=== PATIENT | male | born 1965 | race Caucasian/White ===

== ENCOUNTER 2020-11-12 06:43 | Day surgery (SDC) | payer BC, SELFPAY ==
[2020-11-06 11:22] VITALS: BMI 34.4
[2020-11-12 07:05] VITALS: BP 180/93; PULSE 63; RESP 18; TEMP 36.1; O2SAT 99
--- NOTE | 2020-11-12 07:50 | P.PN_ITS ---
[facility] Anesthesia Checklist - Patient Identification Patient Identification: Arm Band - Structural Data Admitted From: Home Planned Operative Procedure/s: colonoscopy Consent for Planned Operative Procedure(s) Verified: Yes Verified Documents: Surgical Consent, History and Physical - NPO Status Verified Time NPO: 00:00 - Additional verifications Anesthesia Reactions: No - Airway Assessment C-Spine Mobility Assessed: Yes (mp2) TMJ Mobility Assessed: Yes Dentition: Good Dentition - Neurological Assessment Level of Consciousness: Awake, Alert - Anesthesia Plan Anesthesia Risk discussed: Yes Anesthesia Plan: Verified ASA Class: III Anesthesia Type: MAC [facility] History I have reviewed the patient's past medical history: Yes Medical History: Reports:: Gastroesophageal Reflux Disease(GERD), Hypertension, Valvular Heart Disease (moderate to severe aortic stenosis) Denies:: Cancer, Diabetes Mellitus Type 1, Diabetes Mellitus Type 2, Internal Pacemaker, MRSA, Seizures *Have you ever received a pneumonia vaccine?: No *Have you received a flu vaccine this season?: No Anesthesia experience/problems:: nac Other Surgeries: Yes: No Previous Surgery. No: Pacemaker Amputation: No Fractures: No - *Social History Last grade of school completed: Some college Smoking Status: Never smoker Alcohol Intake: current Alcohol Intake Frequency:: 3 or more drinks per day Substance Use Type: denies use *Occupational Status:: employed Housing: house Household Members: spouse *Travel in the last 8 weeks: None Family Hx:: No significant family history
[2020-11-12 07:58] VITALS: O2SAT 97
--- NOTE | 2020-11-12 08:00 | HMH.PROC ---
[facility] Procedure Note Procedure Note:: Colonoscopy Procedure Report: Colonoscopy with cold snare polypectomy Endoscopist: Harry Palomares II, MD Referring physician: PAOLA Brar ([facility]) Date of Procedure: November 12, 2020 Equipment: Olympus 190 variable stiffness pediatric colonoscope Sedation: MAC sedation Indication: Mr. Andrew is a 55-year-old gentleman who is here for follow-up screening/surveillance colonoscopy. He does state that he has had 3 first cousins with colon cancer. He does state that all of his paternal aunts and uncles had variable cancers (13 out of 14). The patient reports no abdominal pain, weight loss, change in his bowel habits or rectal bleeding. His last colonoscopy in December 2012 showed no polyps. The patient does report 7-10 bowel movements daily with some frequency but this is unchanged. He does have moderate to severe aortic stenosis (bicuspid valve) and is followed by Dr. Frank Gutierres at the [facility]. Procedure: Prior to the procedure, a history and physical exam was performed, and patient's medications and allergies were reviewed. The risks, benefits and alternatives of the sedation and procedure were discussed with the patient. All questions were answered and informed consent was obtained. The patient was brought to the procedure room. Patient identification and proposed procedure were verified by the physician and the nurse. The patient was placed in a left lateral decubitus position and the scope was passed under direct vision. Throughout the procedure, the patient's blood pressure, pulse, and oxygen saturations were monitored continuously. The colonoscopy was accomplished without difficulty. The patient tolerated the procedure well. Findings: On digital rectal examination there was normal rectal tone. There were no external hemorrhoids. The prostate was 2+, smooth, soft, symmetric without nodules. The colonoscope was introduced through the anal canal to the rectum and advanced to the cecum. The ileocecal valve and appendiceal orifice were identified. The scope was advanced a short distance into the ileum which appeared grossly normal. The scope was then withdrawn into the colon. The cecum, ascending and transverse colon and mucosa were grossly normal. There were scattered diverticuli throughout the descending and sigmoid colon (LEFT colon). There were 2 diminutive polyps in the rectum (3 and 4 mm) which were both removed via cold snare polypectomy. Upon retroflexion within the rectum there were grade 2 internal hemorrhoids. The preparation was excellent throughout with [place] Preparation Score of 9. The cecal time was 12 minutes. Impression: 1. Diminutive colonic polyps x2 2. Left-sided diverticulosis 3. Grade 2 internal hemorrhoids Plan: I will follow up the polyp pathology and recommend repeat colonoscopy again in 7-10 years based upon the polyp histology. I would encourage bulking fiber supplementation (FiberCon by mouth 2 tablets every morning) on a long-term daily maintenance basis.
[2020-11-12 08:18] VITALS: BP 122/69; PULSE 67; RESP 16; TEMP 36.3; O2SAT 97
[2020-11-12 08:28] VITALS: BP 139/82; PULSE 67; RESP 16; O2SAT 95
[2020-11-12 08:38] VITALS: BP 144/86; PULSE 61; RESP 16; O2SAT 97
[2020-11-12 08:48] VITALS: BP 156/88; PULSE 60; RESP 16; TEMP 36.3; O2SAT 96
== END 2020-11-12 08:48 | disposition home or self-care (01) ==
PROVIDERS: PCP Nurse Practitioner Family; Visit Provider Internal Medicine Gastroenterology
PROC: 0DJD8ZZ Inspection of Lower Intestinal Tract, Via Natural or Artificial Opening Endoscopic (ICD-10-PCS; CPT 45378; principal; 2020-11-12 08:00)
DX: Z12.11 Encounter for screening for malignant neoplasm of colon (principal); K63.5 Polyp of colon; K57.30 Diverticulosis of large intestine without perforation or abscess without bleeding; K64.1 Second degree hemorrhoids; I35.0 Nonrheumatic aortic (valve) stenosis; K21.9 Gastro-esophageal reflux disease without esophagitis; I10 Essential (primary) hypertension; Z79.899 Other long term (current) drug therapy
CPT/HCPCS: 45385; U0003